=== PATIENT | female | born 1970 | race Caucasian/White ===

== ENCOUNTER → 2023-11-19 13:06 | Outpatient (BNVA) | payer OTHER, SELFPAY | PROVIDERS: Visit Provider Physician Assistant | DX: S20.212A Contusion of left front wall of thorax, initial encounter (principal); X58.XXXA Exposure to other specified factors, initial encounter | CPT/HCPCS: 71101; 99204 ==

== ENCOUNTER → 2023-12-03 15:36 | Outpatient (BNVA) | payer OTHER, SELFPAY | PROVIDERS: Visit Provider Physician Assistant | DX: R07.81 Pleurodynia (principal) | CPT/HCPCS: 99213 ==

== ENCOUNTER → 2023-12-25 15:35 | Outpatient (BNVA) | payer OTHER, SELFPAY | PROVIDERS: Visit Provider Physician Assistant | DX: M94.0 Chondrocostal junction syndrome [Tietze] (principal); S20.212D Contusion of left front wall of thorax, subsequent encounter; X58.XXXD Exposure to other specified factors, subsequent encounter | CPT/HCPCS: 99213 ==